=== PATIENT | male | born 1965 | race Two or more races ===

== ENCOUNTER 2019-01-05 22:39 | Emergency (ER) | payer OTHER ==
[~2019-01-05] VITALS: Ht 177.8 cm; Wt 67.6 kg
[2019-01-05 22:45] VITALS: Ht 177.8 cm; Wt 67.6 kg
[2019-01-06 00:10] LABS: UA SPECIFIC GRAVITY 1.025 (1.005-1.035); microscopic required? YES; urine erythrocyte 1+ (NEGATIVE)
[2019-01-06 01:22] VITALS: BP 114/71
== END 2019-01-06 01:22 | disposition home or self-care (01) ==
LOC: ED 22:39
PROVIDERS: Emergency Medicine
DX: N40.0 Benign prostatic hyperplasia without lower urinary tract symptoms (principal); R31.9 Hematuria, unspecified; R39.198 Other difficulties with micturition

== ENCOUNTER 2020-06-22 18:31 | Emergency (ER) | payer OTHER ==
[~2020-06-22] VITALS: Ht 170.2 cm; Wt 68.0 kg
[2020-06-22 18:43] VITALS: Ht 170.2 cm; Wt 68.0 kg
[2020-06-22 20:49] VITALS: BP 143/88
== END 2020-06-22 20:49 | disposition home or self-care (01) ==
LOC: ED 18:31
DX: S22.42XA Multiple fractures of ribs, left side, initial encounter for closed fracture (principal); W19.XXXA Unspecified fall, initial encounter; Y93.89 Activity, other specified; Y92.89 Other specified places as the place of occurrence of the external cause; Y99.8 Other external cause status
CPT/HCPCS: J1885